=== PATIENT | male | born 1965 | race Caucasian/White ===

== ENCOUNTER 2023-02-18 10:17 | Outpatient (CLI) | payer BC, SELFPAY | END 2023-02-18 10:18 | disposition home or self-care (01) | PROVIDERS: PCP Family Medicine; Visit Provider Family Medicine | DX: Z00.00 Encounter for general adult medical examination without abnormal findings (principal); I10 Essential (primary) hypertension; E78.5 Hyperlipidemia, unspecified; E04.1 Nontoxic single thyroid nodule; Z12.5 Encounter for screening for malignant neoplasm of prostate | CPT/HCPCS: 80048; 80061; 84153 ==

== ENCOUNTER 2023-03-30 15:45 | Outpatient (CLI) | payer BC, SELFPAY ==
--- NOTE | 2023-03-30 16:00 | CRLHL7_ITS ---
For Patients: As a result of the Century Cures Act, medical imaging exams and procedure reports are released immediately into your electronic medical record. You may view this report before your referring provider. If you have questions, please contact your health care provider. Indication: THORACIC ANEURYSM, NON RUPTURE Technique: Noncontrast CT chest Please note that all CT scans at this facility use dose modulation, iterative reconstruction, and/or weight-based dosing when appropriate to reduce radiation dose to as low as reasonably achievable. Comparison: 10/28/2020 Findings: 4.5 cm ascending aortic aneurysm is unchanged. Trace pericardial effusion noted inferiorly. No adrenal nodule. No adenopathy. No thyroid lesion. Mild vascular calcifications. Stable incidental perifissural nodule left lung base anteriorly. No infiltrate or edema. No pneumothorax. Stable subpleural nodule within the right anterolateral lung. Impression: No significant interval change in the 4.5 millimeter ascending aortic aneurysm. Stable small pulmonary nodules. Please note that all CT scans at this facility use dose modulation, iterative reconstruction, and/or weight-based dosing when appropriate to reduce radiation dose to as low as reasonably achievable. Dictated by Henrique Anaya MD @ 04/01/2023 2:42:52 PM (Electronically Signed)
== END 2023-03-30 15:46 | disposition home or self-care (01) ==
LOC: CT 15:45
PROVIDERS: PCP Family Medicine; Visit Provider Family Medicine
DX: I71.20 Thoracic aortic aneurysm, without rupture, unspecified (principal); R91.1 Solitary pulmonary nodule
CPT/HCPCS: 71250

== ENCOUNTER 2024-03-23 08:48 | Outpatient (CLI) | payer BC, SELFPAY | END 2024-03-23 08:49 | disposition home or self-care (01) | LOC: NFLDREF 03-27 14:51 | PROVIDERS: PCP Family Medicine; Referring Provider Family Medicine; Visit Provider Family Medicine | DX: R68.82 Decreased libido (principal); E78.5 Hyperlipidemia, unspecified; I10 Essential (primary) hypertension; F41.9 Anxiety disorder, unspecified | CPT/HCPCS: 80053; 80061; 84403 ==

== ENCOUNTER 2024-05-28 08:47 | Outpatient (CLI) | payer BC, SELFPAY | END 2024-05-28 08:48 | disposition home or self-care (01) | LOC: NFLDREF 08:47 | PROVIDERS: PCP Family Medicine; Visit Provider Family Medicine | DX: Z01.818 Encounter for other preprocedural examination (principal); I10 Essential (primary) hypertension | CPT/HCPCS: 80048 ==

== ENCOUNTER 2024-06-14 06:25 | Day surgery (SDC) | payer BC, SELFPAY ==
[2024-06-14] VITALS (11 sets, daily range): BP systolic 104–125; BP diastolic 66–97; PULSE 46–67; RESP 12–16; TEMP 36.1–36.6; O2SAT 88–96; BMI 30.7
[2024-06-14] MEDS: SODIUM CHLORIDE 0.9 % (FLUSH) 10 ML SYRINGE IVF (07:00)
[2024-06-14] MEDS: 0.9 % SODIUM CHLORIDE 500 ML 500 ML 100 ML IV ×2 (07:00→07:34)
[2024-06-14] MEDS: CEFAZOLIN 2 GM INJ IVP (07:28)
[2024-06-14] MEDS: BUPIVACAINE 0.25% 30 ML INJECTION (07:45)
--- NOTE | 2024-06-14 08:18 | PM.GSPRC ---
Operative Note Date of procedure: 06/14/24 Pre-op diagnosis: Umbilical hernia, recurrent Post-op diagnosis: Same Type of Procedure: Open umbilical hernia repair with placement of mesh Indications: Patient is a 59-year-old male who presented to clinic with a recurrent umbilical hernia. Risks and benefits of operative intervention were discussed at length with the patient. Risks included but was not limited to: Bleeding, infection, risk of damage to surrounding structures, possible need for additional procedures, risk of recurrence and postoperative complications such as pneumonia, pulmonary emboli or OR. All questions and concerns were addressed with the patient agreeing to proceed. Procedure Description: After discussing the risks and benefits of the procedure, the patient signed informed consent.? The operative site was marked and the patient was brought to the operating room and placed on the operating table in supine position.? Care was taken to pad the patient's pressure points.?? The patient was then intubated by anesthesia.?? The operative site was then prepped and draped in the usual sterile fashion.? A time-out was then performed. A curvilinear incision was made at the umbilicus. Dissection was carried down into the subcutaneous tissue using cautery. The hernia sac was encountered and care was taken to not enter it. Dissection was taken down to the fascia. The hernia defect was approximately 2 cm and slightly inferior, right lateral to the umbilical stalk. The umbilical stalk was carefully dissected free. Once the hernia sac was dissected out circumferentially, it was reduced. The fascial edges were then cleared circumferentially. Given the size of the hernia the decision was made to use a piece of mesh. A preperitoneal pocket was created using a combination of blunt dissection and cautery. Previously placed mesh within the preperitoneal space was encountered on the anterior aspect of the fascial defect. This was cleared from the anterior abdominal wall surface, but left within the preperitoneal space. Hemostasis appeared adequate after dissection. Once the posterior fascia was clear, a piece of medium Ventralex ST hernia mesh was placed in the preperitoneal space with care to ensure that it laid flat. This was secured into place using 2 0 PDS interrupted sutures. The tails were then trimmed and the fascial opening was closed with a running 0 Vicryl. Local anesthetic was injected into the fascia, skin and subcutaneous tissues. The umbilicus was reapproximated to the fascia. The skin was then closed with running absorbable suture. A sterile dressing was then applied. Sterile dressings were then applied. ? The patient was then woken and transported to the recovery area in stable condition. ? The patient tolerated the procedure well. Findings: Recurrent umbilical hernia, repaired with mesh. Anesthesia: GETA Surgeon: Elisabet Hammonds MD Estimated blood loss (mL): 5 Condition: stable Disposition: PACU
--- NOTE | 2024-06-14 08:21 | W.PM.H&PU ---
History & Physical Update History & Physical Update H&P Reviewed and patient assessed: No changes noted
--- NOTE | 2024-06-14 08:24 | W.ANESCHARGE ---
Anesthesia Charges Start Date/Time Anesthesia Start Date: 06/14/24 Anesthesia Start Time: 07:15 Stop Date/Time Anesthesia Stop Date: 06/14/24 Anesthesia Stop Time: 08:23 Coding CPT Codes CPT Codes: ANESTH REPAIR OF HERNIA - 26490 ([id number]) QK - PEOPLESOFT 2-4 CNCRNT ANES PROC, QX - MMA FIGHTER SVC W/ MD MED DIRECTION, P2 - PATIENT W/MILD SYST DISEASE
--- NOTE | 2024-06-14 08:25 | W.ANESCHARGE ---
Anesthesia Charges Start Date/Time Anesthesia Start Date: 06/14/24 Anesthesia Start Time: 07:15 Stop Date/Time Anesthesia Stop Date: 06/14/24 Anesthesia Stop Time: 08:23 Coding CPT Codes CPT Codes: ANESTH REPAIR OF HERNIA - 36819 ([id number]) QK - PRODUCT CONTROLLER 2-4 CNCRNT ANES PROC, QX - GL ACCOUNTANT SVC W/ MD MED DIRECTION, P2 - PATIENT W/MILD SYST DISEASE
[2024-06-14] MEDS: HYDROCODONE-ACETAMIN 5-325 MG 1 TAB PO (09:09)
[2024-06-14] MEDS: ACETAMINOPHEN 325 MG TABLET 650 MG PO (09:09)
== END 2024-06-14 10:01 | disposition home or self-care (01) ==
PROVIDERS: PCP Family Medicine; Visit Provider Surgery
PROC: (CPT 49613; principal; 2024-06-14 07:30)
DX: K42.9 Umbilical hernia without obstruction or gangrene (principal)
CPT/HCPCS: 49613; 00750; A9270; C1781; J0330; J0665; J0690; J1100; J1885; J2250; J2405; J2704; J2710; J3010; J3490; J7030

== ENCOUNTER 2024-08-22 09:02 | Emergency (ER) | payer BC, SELFPAY ==
[2024-08-22 09:05] VITALS: BP 146/91; PULSE 58; RESP 16; TEMP 36.5; O2SAT 96; BMI 27.4
--- NOTE | 2024-08-22 09:18 | ED.GENADULT ---
HPI - General Adult General Time Seen by Provider: 09:18 Date Seen: 08/22/24 Chief complaint: Extremity Pain/Injury, Upper Stated complaint: L arm pain/numbness Time Seen by Provider: 08/22/24 09:18 Source: patient and RN notes reviewed Mode of arrival: ambulatory Limitations: no limitations History of Present Illness HPI narrative: This 59-year-old male is coming in with pain in his left hand/arm. It started about 2 days ago. The hand has been numb and tingly with the fingers encompassing the 1st 3 digits in some of the ring finger on this left hand. There is pain that goes from his hand up the arm in up to his shoulder. No neck pain. 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 He has not slept the last couple nights, pain is awakening him. He has not been diagnosed with carpal tunnel. There is no trauma. He states the numbness tingling really only started in the last couple days when the symptoms started. He does feel like the pain starts in the hand or wrist area and then will go up the arm. Later he did states that his wrist felt better in the splint, did note that he had been having some wrist aching and pain for the last year to maybe 1 1/2 years. Related Data Previous Rx's ?Medication ?Instructions ?Recorded amlodipine 5 mg tablet 5 mg PO QDAY #90 tabs 03/21/24 atenolol 50 mg tablet 50 mg PO QDAY #90 tabs 03/21/24 atorvastatin 20 mg tablet 20 mg PO QDAY #90 tabs 03/21/24 losartan 100 mg tablet 100 mg PO QDAY #90 tabs 03/21/24 fluoxetine 40 mg capsule 40 mg PO QDAY #30 caps 07/12/24 lisdexamfetamine 40 mg capsule 40 mg PO QAM #30 caps 07/12/24 naproxen 500 mg tablet 500 mg PO BID #30 tabs 08/22/24 Allergies Allergy/AdvReac Type Severity Reaction Status Date / Time No Known Drug Allergies Allergy Verified 07/12/24 08:41 Review of Systems Narrative: As per HPI. [facility] Medical History Rotator cuff impingement syndrome of right shoulder ?M75.41 - Impingement syndrome of right shoulder (ICD-10) Surgical History Status post vasectomy (11/25/08) ?Z98.52 - Vasectomy status (ICD-10) History of bilateral inguinal hernia repair ?Z98.890 - Other specified postprocedural states (ICD-10) ?Z87.19 - Personal history of other diseases of the digestive system (ICD-10) Family History Other Diabetes Social History What is your current living situation?: I presently have a place to live Problems where you live: no known problems In the past 12 months, utilities in danger of being shut off: no In past 12 months, lack of transportation kept you from medical appts, meetings, work, or getting things needed for daily living: no In the past 12 mos, have been you worried that your food would run out before you had money to buy more?: never true In the past 12 mos, the food you bought just didn't last and you didn't have money to buy more?: never true Smoking Status: Never smoker Do you use any of these nicotine containing products: None How often do you have a drink containing alcohol: 2-3 times a week Alcohol type: beer How many standard drinks containing alcohol do you have on a typical day: 1 or 2 AUDIT-C Alcohol total score: 3 Non-prescribed substance use: marijuana (any form) Caffeine: Yes (coffee/pop) How often does anyone, including family, friends and others, physically hurt you: never How often does anyone, including family, friends and others, insult or talk down to you: never How often does anyone, including family, friends and others, threaten you with harm: never How often does anyone, including family, friends and others, scream or curse at you: never Exam Const: Vital Signs, click to edit/add: Vital Signs - 24 hr 08/22/24 09:05 Temperature 97.7 F Pulse Rate [Pulse Oximeter] 58 L Respiratory Rate 16 Blood Pressure [Ri ght Upper Arm] 146/91 H Pulse Oximetry 96 Oxygen Delivery Me thod Room Air This 59-year-old male is alert, interactive, no apparent distress. He has significant muscle tone that appears symmetric. He has numb feeling thumb index 3rd finger and some of his ring finger in the left hand. Interosseous muscles seem to be intact and symmetrical strength to his right hand. Hand dust collector ore crushing strength is diminished but he states it causes pain in the wrist. He has positive Tinel's with increased numbness tingling feeling in his fingers in the hand, positive Phalen's as well. With the Phalen's he can feel pain going up into the forearm, does feel increased tingling in the 1st 3 fingers for sure. There is no wrist swelling, has normal range of motion and normal strength. His strength in his upper arm is normal and symmetrical, full range of motion of the elbow and shoulder without any impingement symptoms of the shoulder. Documenting provider has reviewed patient's vital signs: yes Course Course ED Course: Have reviewed with patient that he really seems to have carpal tunnel. You will need to follow up with Orthopedics. We discussed EMG as diagnostic test which is not done out of the ER. Will do some screening labs, did discuss that thyroid disease can be associated with this and will do screening inflammatory markers, TSH. I will contact him if there is anything concerning and direct him as to further follow-up if labs are abnormal. He will need to follow up with Orthopedics, injection can be considered. This ultimately will be up to Orthopedics. Have put him in a wrist splint, discussed that this helps hold the wrist in anatomic position and stops compression of the median nerve in the carpal tunnel. He does note that he feels some relief with application of the splint already. Reviewed that it absolutely should be worn with driving and at night for sure. Will send in a course of anti-inflammatory treatment for him. Consultations Consultation #1: Did update Dr. Johnson on this patient so that they would be aware to try to work him into Orthopedic Clinic. They certainly may consider doing steroid injection on him, did ask him about this. Will plan on discharging, no change in management. Time: 10:11 Vital Signs Vital signs: Initial Vital Signs Temperature 97.7 F 08/22/24 09:05 Temperature Source Temporal Artery Scan 08/22/24 09:05 Pulse Rate 58 L 08/22/24 09:05 Respiratory Rate 16 08/22/24 09:05 Blood Pressure 146/91 H 08/22/24 09:05 Blood Pressure Mean 109 H 08/22/24 09:05 Blood Pressure Position Sitting 08/22/24 09:05 Pulse Oximetry 96 08/22/24 09:05 Oxygen Delivery Method Room Air 08/22/24 09:05 Vital Signs Temperature 97.7 F 08/22/24 09:05 Pulse Rate 58 L 08/22/24 09:05 Respiratory Rate 16 08/22/24 09:05 Blood Pressure 146/91 H 08/22/24 09:05 Pulse Oximetry 96 08/22/24 09:05 Oxygen Delivery Method Room Air 08/22/24 09:05 Temperature 97.7 F 08/22/24 09:05 Pulse Rate 58 L 08/22/24 09:05 Respiratory Rate 16 08/22/24 09:05 Blood Pressure 146/91 H 08/22/24 09:05 Pulse Oximetry 96 08/22/24 09:05 Oxygen Delivery Method Room Air 08/22/24 09:05 Medical Decision Making Lab Data Lab results reviewed: Yes I reviewed the patient's lab results Labs: Lab Results 08/22/24 Range/Units 09:51 WBC 8.63 (4.50-11.00) K/uL RBC 4.38 (4.30-5.90) m/uL Hgb 13.4 L (13.5-17.5) gm/dL Hct 40.0 (37.0-53.0) % MCV 91 (80-100) fL MCH 31 (26-34) pg MCHC 34 (32-36) gm/dL RDW Coeff of [place] 12.4 (11.5-15.5) % Plt Count 201 (140-440) K/uL Neut % (Auto) 71.5 (42.0-72.0) % Lymph % (Auto) 15.8 L (20-44) % [place] % (Auto) 9.3 (0.0-11.0) % Eos % (Auto) 3.2 (0.0-7.0) % Baso % (Auto) 0.2 (0.0-3.0) % Neut # (Auto) 6.17 (1.7-7.0) K/uL Lymph # (Auto) 1.40 (0.90-2.90) K/uL [place] # (Auto) 0.80 (0.00-0.90) K/UL Eos # (Auto) 0.28 (0.00-0.50) K/uL Baso # (Auto) 0.02 (0.00-0.30) K/uL Abs Immat Gran (auto) 0.00 (0.00-0.30) K/uL Imm/Tot Granulo (auto) 0.0 % ESR 9 (2-15) mm/hr C-Reactive Protein 0.8 (0.5-1.0) mg/dL TSH 2.110 (0.270-4.200) uIU/mL Discharge Plan Discharge Clinical Impression: Acute carpal tunnel syndrome of left wrist Patient Disposition: Home, Self-Care Condition: Stable Instructions: Carpal Tunnel Syndrome (DC) Additional Instructions: Use wrist splint as much as you are able to right now; he absolutely should wear it with driving and sleeping to help hold your wrist in anatomic position and stop compression of the median nerve. Take the course of anti-inflammatories, do recommend taking it with food to protect your stomach. Call the orthopedic number to get scheduled for a follow-up. They may consider further testing such as EMG. Ultimately they will direct you appropriately in further workup and management of this. Activity Level: Activity as Tolerated Prescriptions: New naproxen 500 mg tablet 500 mg PO BID Qty: 30 0RF No Action amlodipine 5 mg tablet 5 mg PO QDAY Qty: 90 3RF atenolol 50 mg tablet 50 mg PO QDAY Qty: 90 3RF atorvastatin 20 mg tablet 20 mg PO QDAY Qty: 90 3RF losartan 100 mg tablet 100 mg PO QDAY Qty: 90 3RF fluoxetine 40 mg capsule 40 mg PO QDAY Qty: 30 1RF lisdexamfetamine 40 mg capsule 40 mg PO QAM Qty: 30 0RF Follow Up/Referrals: Kavon San MD [Primary Care Provider] - Stand Alone Forms[facility] Info Instructions
[2024-08-22 10:00] LABS: Basophils Absolute Auto 0.02 K/uL (0.00-0.30); Basophils Percent Auto 0.2 % (0.0-3.0); Eosinophils Absolute Auto 0.28 K/uL (0.00-0.50); Eosinophils Percent Auto 3.2 % (0.0-7.0); Hemoglobin* 13.4 gm/dL (13.5-17.5); Lymphocytes Percent Auto 15.8 % (20-44); Mean Corpuscular HGB Conc 34 gm/dL (32-36); Mean Corpuscular Hemoglobin 31 pg (26-34); Mean Corpuscular Volume 91 fL (80-100); Monocytes Percent Auto 9.3 % (0.0-11.0); Neutrophils Absolute Auto 6.17 K/uL (1.7-7.0); Neutrophils Percent Auto 71.5 % (42.0-72.0); Platelet Count* 201 K/uL (140-440); RDW Coefficient of Variation % 12.4 % (11.5-15.5); Red Blood Count 4.38 m/uL (4.30-5.90); White Blood Count* 8.63 K/uL (4.50-11.00)
[2024-08-22 10:04] LABS: Slide Review Reflex No
[2024-08-22 10:17] LABS: C Reactive Protein* 0.8 mg/dL (0.5-1.0)
[2024-08-22 10:45] LABS: Erythrocyte SedimentationRate* 9 mm/hr (2-15)
== END 2024-08-22 10:47 | disposition home or self-care (01) ==
LOC: ED 10:09
PROVIDERS: Emergency Provider Family Medicine; PCP Family Medicine
DX: G56.02 Carpal tunnel syndrome, left upper limb (principal)
CPT/HCPCS: 36415; 84443; 85025; 85651; 86140; 99283